=== PATIENT | male | born 1955 | race Caucasian/White ===

== ENCOUNTER 2017-03-16 08:58 | Emergency (ER) | payer BC, SELFPAY ==
[2017-03-16 09:20] VITALS: BP 153/91
[2017-03-16] MEDS ORDERED: Bacitracin Oint 1 GM U/D Packet TOP ONE (09:29)
--- NOTE | 2017-03-16 09:36 | EDM.PDOC ---
ED HPI GENERAL MEDICAL PROBLEM - General Chief Complaint: Wound Recheck Stated Complaint: MEDICAL VIA [facility] Time Seen by Provider: 03/16/17 09:32 Source of Information: Reports: Patient History Limitations: Reports: No Limitations - History of Present Illness INITIAL COMMENTS - FREE TEXT/NARRATIVE: pt arrived with a history of picking off a scab and having alot of bleeding all over his bathroom and what not. He was quite covered with blood on arrival. The area involved is on the inner spect of the rt ankle. Onset: Today Duration: Hour(s): Location: Reports: Lower Extremity, Right Associated Symptoms: Reports: No Other Symptoms - Related Data Allergies Allergy/AdvReac Type Severity Reaction Status Date / Time latex Allergy Hives Verified 01/18/16 08:49 Penicillins Allergy Hives Verified 01/18/16 08:49 Home Meds: Home Meds Glimepiride [Glimepiride] 1 tab PO DAILY 06/17/13 [History] Insulin Glarg,Human.Rec.Analog [Lantus Solostar] 55 units SQ QAM 06/17/13 [ History] metFORMIN [metFORMIN XR] 1,000 mg PO BIDM 06/17/13 [History] Ascorbic Acid [C-1000 with Soco Hips] 1 tab PO DAILY 01/18/16 [History] Aspirin 1 tab PO DAILY 01/18/16 [History] Calcium Carbonate/Vitamin D3 [Calcium 500-Vit D3 200 Tablet] 1 tab PO DAILY [History] Cholecalciferol (Vitamin D3) [Vitamin D3] 1 tab PO DAILY 01/18/16 [History] Chromium Amino Acid Chelate [Chromium] 200 mcg PO DAILY 01/18/16 [History] Insulin Aspart [NovoLOG] 20 - 25 unit SUBCUT ASDIRECTED 01/18/16 [History] Multivitamin/Iron/Folic Acid [Centrum Complete Multivit] 1 tab PO DAILY [History] Selenium 1 tab PO DAILY 01/18/16 [History] Ubidecarenone [Coenzyme Q10] 1 cap PO BID 01/18/16 [History] atorvaSTATin [Lipitor] 1 tab PO DAILY 01/18/16 [History] Past Medical History HEENT History: Reports: Impaired Vision Cardiovascular History: Reports: High Cholesterol, Hypertension Endocrine/Metabolic History: Reports: Diabetes, Type II Dermatologic History: Reports: Decubitus Ulcer Social & Family History - Tobacco Use Smoking Status *Q: Never Smoker - Recreational Drug Use Recreational Drug Use: No ED ROS GENERAL - Review of Systems Review Of Systems: See Below Constitutional: Reports: No Symptoms HEENT: Reports: No Symptoms Respiratory: Reports: No Symptoms Cardiovascular: Reports: No Symptoms Endocrine: Reports: No Symptoms GI/Abdominal: Reports: No Symptoms : Reports: No Symptoms Musculoskeletal: Reports: Other (pt removed a scab and he has had alot of bleeding since that time. The ave involved is on the inner aspect of the ankle. ) ED EXAM, GENERAL - Physical Exam Exam: See Below Free Text/Narrative:: pt arrived with a area on the inner aspect of the rt ankle which was bleeding profusely. He evidently had blood all over his house. He is a diabetic and has varicosities and he has had leg ulcrs. Exam Limited By: No Limitations General Appearance: Alert, Anxious, Mild Distress Ears: Normal TMs Nose: Normal Inspection Throat/Mouth: Normal Inspection Neck: Normal Inspection Respiratory/Chest: No Respiratory Distress Cardiovascular: Regular Rate, Rhythm GI/Abdominal: Soft, Non-Tender (Male) Exam: Deferred Rectal (Males) Exam: Deferred Back Exam: Normal Inspection Extremities: Normal Inspection Neurological: Alert, Oriented, Normal Cognition, Other (pt is slightly impaired with his abilities) Course - Vital Signs Last Recorded V/S: Last Vital Signs Temp 36.0 C 03/16/17 09:19 Pulse 90 03/16/17 09:19 Resp 14 03/16/17 09:19 BP 153/91 H 03/16/17 09:19 Pulse Ox 96 03/16/17 09:19 - Orders/Labs/Meds Labs: Laboratory Tests 03/16/17 03/16/17 Range/Units 09:28 09:30 WBC 6.7 (4.5-11.0) K/uL RBC 4.83 (4.30-5.90) M/uL Hgb 14.1 D (12.0-15.0) g/dL Hct 42.4 (40.0-54.0) % MCV 88 (80-98) fL MCH 29 (27-31) pg MCHC 33 (32-36) % Plt Count 229 (150-400) K/uL Neut % (Auto) 67 H (36-66) % Lymph % (Auto) 19 L (24-44) % [place] % (Auto) 9 H (2-6) % Eos % (Auto) 4 (2-4) % Baso % (Auto) 0 (0-1) % Sodium 144 (140-148) mmol/L Potassium 3.9 (3.6-5.2) mmol/L Chloride 108 (100-108) mmol/L Carbon Dioxide 25 (21-32) mmol/L Anion Gap 11.5 (5.0-14.0) mmol/L BUN 20 H (7-18) mg/dL Creatinine 0.9 (0.8-1.3) mg/dL Est Cr Clr Drug Dosing 86.19 mL/min Estimated GFR (MDRD) > 60 (>60) Glucose 162 H (74-106) mg/dL Calcium 8.6 (8.5-10.1) mg/dL Meds: Medications Discontinued Medications Generic Name Dose Route Start Last Admin Trade Name Freq PRN Reason Stop Dose Admin Bacitracin 1 dose 03/16/17 09:29 03/16/17 09:33 Bacitracin Oint 1 Gm TOP 03/16/17 09:30 1 dose ONETIME ONE Administration Insulin Detemir 45 unit 03/16/17 10:00 03/16/17 10:03 Levemir SUBCUT 03/16/17 10:01 45 unit ONETIME ONE Administration Lidocaine HCl 5 ml 03/16/17 09:28 03/16/17 09:33 Xylocaine-Mpf 1% INJECT 03/16/17 09:29 5 ml ONETIME ONE Administration Metformin HCl 1,000 mg 03/16/17 09:44 03/16/17 10:06 Glucophage PO 03/16/17 09:45 1,000 mg ONETIME ONE Administration - Re-Assessments/Exams Free Text/Narrative Re-Assessment/Exam: 03/16/17 10:27 pt had a obvious arterial bleeder at the ankle. He was still pumping alot so the area was cleansed well and a stitch was placed. The bleeding did stop readily. Dr castrejon saw the pt and he suggested that we place a coban dressing and since he is gone next week that the pt would follow up with Dr Licona. A appt was set up. Free Text/Narrative Re-Assessment/Exam: 03/16/17 10:33 Pt had lab work that looked good. He was given his metformin and lantus insulin. Departure - Departure Time of Disposition: 10:30 Disposition: Home, Self-Care 01 Condition: Fair Clinical Impression: Varicose leg ulcer - Discharge Information Referrals: PCP,None [Primary Care Provider] - Forms: ED Department Discharge Care Plan Goals: coban dressing was placed on the pt. He will have a stitch to be removed in 10days, appt with Dr Licona at 3 pm on the .
[2017-03-16] MEDS ORDERED: metFORMIN 500 MG Tab PO ONE (09:44)
== END 2017-03-16 10:59 | disposition home or self-care (01) ==
LOC: JP.ED 08:58
DX: I83.013 Varicose veins of right lower extremity with ulcer of ankle (principal); E11.622 Type 2 diabetes mellitus with other skin ulcer; L97.319 Non-pressure chronic ulcer of right ankle with unspecified severity; E78.00 Pure hypercholesterolemia, unspecified; I10 Essential (primary) hypertension; Z91.040 Latex allergy status; Z88.0 Allergy status to penicillin; Z79.4 Long term (current) use of insulin; Z79.82 Long term (current) use of aspirin; Z79.899 Other long term (current) drug therapy
CPT/HCPCS: 36415; 80048; 85025; 99284; A9270

== ENCOUNTER 2017-03-23 06:20 | Day surgery (SDC) | payer BC, SELFPAY ==
[2017-03-23] MEDS ORDERED: Lactated Ringers 1,000 ML IV SCH (07:00)
[2017-03-23] MEDS ORDERED: Propofol 200 MG/20 ML SDV ONE (07:43)
[2017-03-23] MEDS ORDERED: fentaNYL 100 MCG/2 ML SDV ONE (07:43)
[2017-03-23] MEDS ORDERED: Midazolam 1 MG/ML 2 ML SDV ONE (07:44)
[2017-03-23 08:54] VITALS: BP 139/85
--- NOTE | 2017-03-23 13:36 | OR ---
DATE OF PROCEDURE: 03/23/2017 PREOPERATIVE DIAGNOSES: 1. Colon cancer screening. 2. Positive FIT test. POSTOPERATIVE DIAGNOSES: 1. Small rectal polyp. 2. Colon cancer screening. 3. Positive FIT test. PROCEDURE PERFORMED: Colonoscopy to the cecum with biopsy resection of small rectal polyp. SURGEON: Juma Centeno MD. ANESTHESIA: IV anesthesia with monitored anesthesia care. INDICATION: This 61-year-old white male has never had a colonoscopic exam. He had a positive FIT test, so he agreed to undergo a colonoscopy. I counseled him for the colonoscopy with possible biopsy and/or polypectomy including risks and alternatives, and he gave his informed consent to proceed. DESCRIPTION OF PROCEDURE: The patient was placed in the left lateral decubitus position. IV anesthesia was administered by the Anesthesia Service. Time-out was held. A rectal exam was performed, which was unremarkable. The flexible video Olympus colonoscope was introduced through his anus, up his rectum, and out his colon all the way to the cecum. Once the cecum was reached, the scope was slowly withdrawn, examining the mucosa throughout. No mucosal abnormalities were noted until we reached the rectum. Here, we initially retroflexed the scope, with the distal rectum appearing unremarkable. The scope was straightened and this revealed a small rectal polyp. This was removed with several bites of biopsy forceps. The scope was then removed. He tolerated the procedure well. Juma Centeno MD /[id number]
== END 2017-03-23 09:25 | disposition home or self-care (01) ==
LOC: JP.SDS 06:20
PROVIDERS: ATTEND Surgery
DX: Z12.11 Encounter for screening for malignant neoplasm of colon (principal); K62.1 Rectal polyp; I10 Essential (primary) hypertension; E78.00 Pure hypercholesterolemia, unspecified; E11.21 Type 2 diabetes mellitus with diabetic nephropathy; Z88.0 Allergy status to penicillin; Z91.040 Latex allergy status
CPT/HCPCS: 45380; 88305; J2250; J2704; J3010; J7120

== ENCOUNTER 2017-05-10 20:09 | Emergency (ER) | payer BC, SELFPAY ==
[2017-05-10 20:34] VITALS: BP 173/112
--- NOTE | 2017-05-10 21:54 | EDM.PDOC ---
ED HPI GENERAL MEDICAL PROBLEM - General Chief Complaint: Skin Complaint Stated Complaint: BLISTERS AND PAIN ON FOOT Time Seen by Provider: 05/10/17 20:38 Source of Information: Reports: Patient History Limitations: Reports: No Limitations - History of Present Illness INITIAL COMMENTS - FREE TEXT/NARRATIVE: bilateral leg infections are getting worse. today the right lower leg is more swollen and red. 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 at the end of the day, legs are swollen. today more red and swollen. dnies any fever or chills Is being seen by Dr. Gaines for this wound, last visit on 03/27/2017, was suppose to return in one week, but forgot about it. Onset: Gradual Duration: Week(s): Location: Reports: Lower Extremity, Left, Lower Extremity, Right Quality: Reports: Ache, Dull, Pressure Severity: Moderate Improves with: Reports: Rest Worsens with: Reports: Movement Associated Symptoms: Reports: No Other Symptoms - Related Data Allergies Allergy/AdvReac Type Severity Reaction Status Date / Time latex Allergy Hives Verified 05/10/17 20:37 Penicillins Allergy Hives Verified 05/10/17 20:37 Home Meds: Home Meds Glimepiride [Glimepiride] 1 tab PO DAILY 06/17/13 [History] Insulin Glarg,Human.Rec.Analog [Lantus Solostar] 45 units SQ QAM 06/17/13 [ History] metFORMIN [metFORMIN XR] 1,000 mg PO BIDM 06/17/13 [History] Ascorbic Acid [C-1000 with Soco Hips] 1 tab PO DAILY 01/18/16 [History] Aspirin 1 tab PO DAILY 01/18/16 [History] Calcium Carbonate/Vitamin D3 [Calcium 500-Vit D3 200 Tablet] 1 tab PO DAILY [History] Cholecalciferol (Vitamin D3) [Vitamin D3] 1 tab PO DAILY 01/18/16 [History] Chromium Amino Acid Chelate [Chromium] 200 mcg PO DAILY 01/18/16 [History] Insulin Aspart [NovoLOG] 8 - 28 unit SUBCUT ASDIRECTED 01/18/16 [History] Multivitamin/Iron/Folic Acid [Centrum Complete Multivit] 1 tab PO DAILY [History] Selenium 1 tab PO DAILY 01/18/16 [History] Ubidecarenone [Coenzyme Q10] 1 cap PO BID 01/18/16 [History] atorvaSTATin [Lipitor] 1 tab PO DAILY 01/18/16 [History] Past Medical History HEENT History: Reports: Impaired Vision Cardiovascular History: Reports: High Cholesterol, Hypertension Respiratory History: Reports: None Genitourinary History: Reports: Diabetic Nephropathy Musculoskeletal History: Reports: Back Pain, Chronic Endocrine/Metabolic History: Reports: Diabetes, Type II Dermatologic History: Reports: Decubitus Ulcer - Past Surgical History Head Surgeries/Procedures: Reports: None HEENT Surgical History: Reports: Cataract Surgery, Tonsillectomy GI Surgical History: Reports: Colonoscopy Male Surgical History: Reports: None Social & Family History - Family History Family Medical History: Noncontributory - Tobacco Use Smoking Status *Q: Never Smoker - Caffeine Use Caffeine Use: Reports: None - Recreational Drug Use Recreational Drug Use: No ED ROS GENERAL - Review of Systems Review Of Systems: See Below Constitutional: Reports: No Symptoms HEENT: Reports: No Symptoms Respiratory: Reports: No Symptoms Cardiovascular: Reports: No Symptoms Endocrine: Reports: No Symptoms GI/Abdominal: Reports: No Symptoms : Reports: No Symptoms Musculoskeletal: Reports: Leg Pain (right calf), Muscle Pain Skin: Reports: Rash, Erythema, Lesions (blisters noted to the medial and lateral foot.) Neurological: Reports: No Symptoms Psychiatric: Reports: No Symptoms, Other (developmental disabilities) Hematologic/Lymphatic: Reports: No Symptoms Immunologic: Reports: No Symptoms ED EXAM, SKIN/RASH Exam: See Below Exam Limited By: No Limitations General Appearance: Alert, WD/WN, No Apparent Distress Ears: Normal External Exam, Normal Canal, Hearing Grossly Normal, Normal TMs Nose: Normal Inspection, Normal Mucosa, No Blood Throat/Mouth: Normal Inspection Head: Atraumatic, Normocephalic Neck: Normal Inspection, Supple, Non-Tender, Full Range of Motion Respiratory/Chest: No Respiratory Distress, Lungs Clear, Normal Breath Sounds, No Accessory Muscle Use, Chest Non-Tender Cardiovascular: Normal Peripheral Pulses, Regular Rate, Rhythm, No Edema, No Gallop, No JVD, No Murmur, No Rub GI/Abdominal: Normal Bowel Sounds, Soft, Non-Tender, No Organomegaly, No Distention, No Abnormal Bruit, No Mass (Male) Exam: Deferred Rectal (Males) Exam: Deferred Back Exam: Normal Inspection, Full Range of Motion Extremities: Normal Inspection, Normal Range of Motion, Non-Tender, No Pedal Edema, Normal Capillary Refill Neurological: Alert, Oriented, Normal Cognition, Normal Gait Psychiatric: Normal Affect, Normal Mood Skin: Warm, Dry, Intact, Rash (right leg with acute edema, skin is tense and dark reddish color. blisters noted sides of foot) Location, Skin: Lower Extremity, Right, Lower Extremity, Left, Soles Characteristics: Bullous, Erythematous (lower legs not including foot or toes) Associated features: Warmth, Tenderness, Swelling, Inflammation Lymphatic: No Adenopathy Course - Vital Signs Last Recorded V/S: Last Vital Signs Temp 36.6 C 05/10/17 20:40 Pulse 108 H 05/10/17 20:40 Resp 20 05/10/17 20:40 BP 173/112 H 05/10/17 20:40 Pulse Ox 96 05/10/17 20:40 - Orders/Labs/Meds Labs: Laboratory Tests 05/10/17 05/10/17 Range/Units 21:05 21:05 WBC 7.8 (4.5-11.0) K/uL RBC 4.54 (4.30-5.90) M/uL Hgb 13.3 (12.0-15.0) g/dL Hct 40.3 (40.0-54.0) % MCV 89 (80-98) fL MCH 29 (27-31) pg MCHC 33 (32-36) % Plt Count 242 (150-400) K/uL Neut % (Auto) 67 H (36-66) % Lymph % (Auto) 16 L (24-44) % [place] % (Auto) 8 H (2-6) % Eos % (Auto) 9 H (2-4) % Baso % (Auto) 0 (0-1) % Sodium 144 (140-148) mmol/L Potassium 3.8 (3.6-5.2) mmol/L Chloride 107 (100-108) mmol/L Carbon Dioxide 28 (21-32) mmol/L Anion Gap 8.7 (5.0-14.0) mmol/L BUN 18 (7-18) mg/dL Creatinine 0.9 (0.8-1.3) mg/dL Est Cr Clr Drug Dosing 86.19 mL/min Estimated GFR (MDRD) > 60 (>60) Glucose 92 (74-106) mg/dL Calcium 8.9 (8.5-10.1) mg/dL Total Bilirubin 0.3 (0.2-1.0) mg/dL AST 18 (15-37) U/L ALT 42 (12-78) U/L Alkaline Phosphatase 95 (46-116) U/L Total Protein 6.9 (6.4-8.2) g/dL Albumin 3.6 (3.4-5.0) g/dL Globulin 3.3 (2.3-3.5) g/dL Albumin/Globulin Ratio 1.1 L (1.2-2.2) - Re-Assessments/Exams Free Text/Narrative Re-Assessment/Exam: 05/10/17 21:[address] Gaines, who advised; will see next week in clinic, start antibiotics tonight. advise to rtc or er sooner is worsen. discussed with Mr. Daniels, agrees with plan of care. c Departure - Departure Time of Disposition: 22:34 Disposition: Home, Self-Care 01 Condition: Good Clinical Impression: Cellulitis Qualifiers: Site of cellulitis: extremity Site of cellulitis of extremity: lower extremity Laterality: unspecified laterality Qualified Code(s): L03.119 - Cellulitis of unspecified part of limb - Discharge Information Instructions: Cellulitis, Adult, [id number] Referrals: [facility] [Primary Care Provider] - Forms: ED Department Discharge Care Plan Goals: cellulitis -start tonight Keflex one capsule in morning, noon and night for 10 days -Tylenol #3; take one tablet every 4 to 6 hours as needed for pain -do daily skin care with dressing changes -try to stay off feet as much as possible for the next 5 days -avoid prolonged standing or walking. make an appointment to see Dr. Gaines next week for wound care return to ER, Urgent Care or Clinic for any increased pain, fever, chills, increased swelling or not improving. - Problem List & Annotations (1) Cellulitis SNOMED Code(s): 716224377 Code(s): L03.90 - CELLULITIS, UNSPECIFIED Status: Acute Priority: Medium Qualifiers: Site of cellulitis: extremity Site of cellulitis of extremity: lower extremity Laterality: unspecified laterality Qualified Code(s): L03.119 - Cellulitis of unspecified part of limb - Problem List Review Problem List Initiated/Reviewed/Updated: Yes - Assessment/Plan Plan: cellulitis -start tonight Keflex one capsule in morning, noon and night for 10 days -Tylenol #3; take one tablet every 4 to 6 hours as needed for pain -do daily skin care with dressing changes -try to stay off feet as much as possible for the next 5 days -avoid prolonged standing or walking. make an appointment to see Dr. Gaines next week for wound care return to ER, Urgent Care or Clinic for any increased pain, fever, chills, increased swelling or not improving.
== END 2017-05-10 22:34 | disposition home or self-care (01) ==
LOC: JP.ED 20:09
DX: S90.821A Blister (nonthermal), right foot, initial encounter (principal); L03.115 Cellulitis of right lower limb; I10 Essential (primary) hypertension; E78.00 Pure hypercholesterolemia, unspecified; E11.21 Type 2 diabetes mellitus with diabetic nephropathy; Z79.899 Other long term (current) drug therapy; Z79.4 Long term (current) use of insulin; Z91.040 Latex allergy status; Z88.0 Allergy status to penicillin; Z79.82 Long term (current) use of aspirin
CPT/HCPCS: 36415; 80053; 85025; 99284

== ENCOUNTER 2017-09-19 12:45 | Emergency (ER) | payer BC, OTHER, SELFPAY ==
[2017-09-19 13:49] VITALS: BP 169/97
[2017-09-19] MEDS ORDERED: Docusate Sodium 100 MG Cap STA (14:10)
--- NOTE | 2017-09-19 14:14 | EDM.PDOC ---
ED HPI GENERAL MEDICAL PROBLEM - General Chief Complaint: ENT Problem Stated Complaint: CANNOT HEAR BOTH EARS Time Seen by Provider: 09/19/17 14:00 Source of Information: Reports: Patient, RN History Limitations: Reports: No Limitations - History of Present Illness INITIAL COMMENTS - FREE TEXT/NARRATIVE: 62 yo male developed loss of hearing about midday today. He has no pain. He noticed his hearing was decreased earlier and tried to flush his own ears without results. Came right to the ER without stopping at the clinic. Can hear himself talk only. Onset: Today Onset Date: 09/19/17 Onset Time: 12:00 Duration: Hour(s): Location: Reports: Head (both ears) Quality: Reports: Other (no pain) Severity: Mild Improves with: Reports: None Worsens with: Reports: None Context: Reports: Other (? 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 ) - Related Data Allergies Allergy/AdvReac Type Severity Reaction Status Date / Time latex Allergy Hives Verified 09/19/17 14:06 Penicillins Allergy Hives Verified 09/19/17 14:06 Home Meds: Home Meds Glimepiride 1 tab PO DAILY 06/17/13 [History] Insulin Glarg,Human.Rec.Analog [Lantus Solostar] 45 units SQ QAM 06/17/13 [ History] metFORMIN [metFORMIN XR] 1,000 mg PO BIDM 06/17/13 [History] Ascorbic Acid [C-1000 with Soco Hips] 1 tab PO DAILY 01/18/16 [History] Aspirin 1 tab PO DAILY 01/18/16 [History] Calcium Carbonate/Vitamin D3 [Calcium 500-Vit D3 200 Tablet] 1 tab PO DAILY [History] Cholecalciferol (Vitamin D3) [Vitamin D3] 1 tab PO DAILY 01/18/16 [History] Chromium Amino Acid Chelate [Chromium] 200 mcg PO DAILY 01/18/16 [History] Insulin Aspart [NovoLOG] 8 - 28 unit SUBCUT ASDIRECTED 01/18/16 [History] Multivitamin/Iron/Folic Acid [Centrum Complete Multivit] 1 tab PO DAILY [History] Selenium 1 tab PO DAILY 01/18/16 [History] Ubidecarenone [Coenzyme Q10] 1 cap PO BID 01/18/16 [History] atorvaSTATin [Lipitor] 1 tab PO DAILY 01/18/16 [History] Past Medical History HEENT History: Reports: Impaired Vision Cardiovascular History: Reports: High Cholesterol, Hypertension Respiratory History: Reports: None Genitourinary History: Reports: Diabetic Nephropathy Musculoskeletal History: Reports: Back Pain, Chronic Endocrine/Metabolic History: Reports: Diabetes, Type II Dermatologic History: Reports: Decubitus Ulcer - Past Surgical History HEENT Surgical History: Reports: Cataract Surgery, Tonsillectomy GI Surgical History: Reports: Colonoscopy Male Surgical History: Reports: None Social & Family History - Family History Family Medical History: Noncontributory - Tobacco Use Smoking Status *Q: Unknown Ever Smoked - Caffeine Use Caffeine Use: Reports: None - Recreational Drug Use Recreational Drug Use: No ED ROS ENT - Review of Systems Review Of Systems: See Below Constitutional: Reports: No Symptoms HEENT: Reports: Hearing Loss. Denies: Ear Discharge, Ear Pain Respiratory: Reports: No Symptoms Cardiovascular: Reports: No Symptoms Skin: Reports: No Symptoms Neurological: Reports: No Symptoms ED EXAM, ENT - Physical Exam Exam: See Below Exam Limited By: No Limitations General Appearance: Alert, WD/WN, No Apparent Distress Eye Exam: Bilateral Eye: Normal Inspection Ears: Normal External Exam, Normal Canal, Hearing Loss, TM Obscured by Cerumen, Cerumen Impaction. No: Normal TMs, Auricular Erythema, Auricular Ecchymosis Nose: Normal Inspection, Normal Mucousa, No Blood Mouth/Throat: Normal Inspection, Normal Gums, Normal Lips Head: Atraumatic, Normocephalic Neck: Normal Inspection, Supple, Non-Tender Respiratory/Chest: No Respiratory Distress, Lungs Clear, Normal Breath Sounds, No Accessory Muscle Use Cardiovascular: Regular Rate, Rhythm, No Edema Course - Vital Signs Text/Narrative:: Unable to remove wax today with irrigation, too hard. Last Recorded V/S: Last Vital Signs Temp 35.6 C 09/19/17 14:05 Pulse 73 09/19/17 14:05 Resp 14 09/19/17 14:05 BP 169/97 H 09/19/17 14:05 Pulse Ox 96 09/19/17 14:05 - Orders/Labs/Meds Meds: Medications Discontinued Medications Generic Name Dose Route Start Last Admin Trade Name Freq PRN Reason Stop Dose Admin Docusate Sodium 200 mg 09/19/17 14:10 09/19/17 14:48 Colace .XX 09/19/17 14:11 200 mg NOW STA Administration Departure - Departure Time of Disposition: 15:44 Disposition: Home, Self-Care 01 Condition: Good Clinical Impression: Bilateral impacted cerumen - Discharge Information Referrals: PCP,None [Primary Care Provider] - Forms: ED Department Discharge
== END 2017-09-19 15:59 | disposition home or self-care (01) ==
LOC: JP.ED 12:45
DX: H61.23 Impacted cerumen, bilateral (principal); E11.21 Type 2 diabetes mellitus with diabetic nephropathy; I10 Essential (primary) hypertension; E78.00 Pure hypercholesterolemia, unspecified; Z79.4 Long term (current) use of insulin; Z79.899 Other long term (current) drug therapy; Z91.040 Latex allergy status; Z88.0 Allergy status to penicillin; Z79.82 Long term (current) use of aspirin
CPT/HCPCS: 99283; A9270

== ENCOUNTER 2018-02-22 10:22 | Emergency (ER) | payer BC ==
[2018-02-22 10:45] VITALS: BP 152/87
[2018-02-22] MEDS ORDERED: Ketorolac 30 MG/ML SDV IM ONE (11:39)
[2018-02-22] MEDS ORDERED: Cyclobenzaprine 10 MG Tab PO ONE (11:39)
--- NOTE | 2018-02-22 11:41 | EDM.PDOC ---
ED HPI GENERAL MEDICAL PROBLEM - General Chief Complaint: Back Pain or Injury Stated Complaint: LOWER BACK PAIN Time Seen by Provider: 02/22/18 11:36 Source of Information: Reports: Patient History Limitations: Reports: No Limitations, Other (Pt with developmental delay but is a good historian) - History of Present Illness INITIAL COMMENTS - FREE TEXT/NARRATIVE: Pt was sitting in the chair yesterday when developed low back pain. No known injury. Today is having spasm and difficulty with ADL's. Did take 2 Advil at home. Denies urinary symptoms or numbness or tingling. 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 Left Lower Back Pain Score (Numeric/FACES): 8 - Related Data Allergies Allergy/AdvReac Type Severity Reaction Status Date / Time latex Allergy Hives Verified 02/22/18 10:38 Penicillins Allergy Hives Verified 02/22/18 10:38 Home Meds: Home Meds Glimepiride 1 tab PO DAILY 06/17/13 [History] Insulin Glarg,Human.Rec.Analog [Lantus Solostar] 40 units SQ QAM 06/17/13 [ History] metFORMIN [metFORMIN XR] 1,000 mg PO BIDM 06/17/13 [History] Ascorbic Acid [C-1000 with Soco Hips] 1 tab PO DAILY 01/18/16 [History] Aspirin 1 tab PO DAILY 01/18/16 [History] Calcium Carbonate/Vitamin D3 [Calcium 500-Vit D3 200 Tablet] 1 tab PO DAILY [History] Cholecalciferol (Vitamin D3) [Vitamin D3] 1 tab PO DAILY 01/18/16 [History] Chromium Amino Acid Chelate [Chromium] 200 mcg PO DAILY 01/18/16 [History] Insulin Aspart [NovoLOG] 8 - 28 unit SUBCUT ASDIRECTED 01/18/16 [History] Multivitamin/Iron/Folic Acid [Centrum Complete Multivit] 1 tab PO DAILY [History] Selenium 1 tab PO DAILY 01/18/16 [History] Ubidecarenone [Coenzyme Q10] 1 cap PO DAILY 01/18/16 [History] atorvaSTATin [Lipitor] 1 tab PO DAILY 01/18/16 [History] Cetirizine HCl [Zyrtec] 10 mg PO DAILY 02/22/18 [History] Past Medical History HEENT History: Reports: Impaired Vision Cardiovascular History: Reports: High Cholesterol, Hypertension Respiratory History: Reports: None Genitourinary History: Reports: Diabetic Nephropathy Musculoskeletal History: Reports: Back Pain, Chronic Endocrine/Metabolic History: Reports: Diabetes, Type II Dermatologic History: Reports: Decubitus Ulcer - Past Surgical History HEENT Surgical History: Reports: Cataract Surgery, Tonsillectomy GI Surgical History: Reports: Colonoscopy Social & Family History - Family History Family Medical History: Noncontributory - Tobacco Use Smoking Status *Q: Never Smoker Second Hand Smoke Exposure: No - Caffeine Use Caffeine Use: Reports: Coffee, Tea - Recreational Drug Use Recreational Drug Use: No ED ROS GENERAL - Review of Systems Review Of Systems: See Below Constitutional: Reports: No Symptoms HEENT: Reports: No Symptoms Respiratory: Reports: No Symptoms Cardiovascular: Reports: No Symptoms Endocrine: Reports: No Symptoms, Other (tested blood sugar this morning. Was 174.) GI/Abdominal: Reports: No Symptoms : Reports: No Symptoms Musculoskeletal: Reports: Back Pain (low back, non radiating) Skin: Reports: No Symptoms Neurological: Reports: No Symptoms ED EXAM,LOWER BACK PAIN/INJURY - Physical Exam Exam: See Below Exam Limited By: No Limitations General Appearance: Alert, WD/WN, Mild Distress, Other (Pt developmentally delayed but good historian.) Head: Atraumatic, Normocephalic Neck: Normal Inspection, Supple, Non-Tender, Full Range of Motion Respiratory/Chest: No Respiratory Distress, Lungs Clear, Normal Breath Sounds, No Accessory Muscle Use, Chest Non-Tender Cardiovascular: Normal Peripheral Pulses, Regular Rate, Rhythm, No Edema, No Gallop, No JVD, No Murmur, No Rub Back Exam: Normal Inspection, Decreased Range of Motion (limited flexion), Muscle Spasm (with position change to low mid back) Extremities: Normal Inspection, Normal Range of Motion, Non-Tender, No Pedal Edema, Normal Capillary Refill Neurological: Alert Course - Vital Signs Last Recorded V/S: Last Vital Signs Temp 97.7 F 02/22/18 10:49 Pulse 94 02/22/18 10:49 Resp 16 02/22/18 10:49 BP 152/87 H 02/22/18 10:49 Pulse Ox 98 02/22/18 10:49 - Orders/Labs/Meds Orders: Active Orders 24 hr Category Date Time Status Lumbar Spine 2 or 3V [CR] Stat Exams 02/22/18 11:38 Taken UA W/MICROSCOPIC [URIN] Routine Lab 02/22/18 12:18 Ordered Labs: Laboratory Tests 02/22/18 Range/Units 12:18 Urine Color Yellow Urine Appearance Clear Urine pH 5.0 (4.5-8.0) Ur Specific [place] 1.025 (1.008-1.030) Urine Protein Negative (NEGATIVE) mg/dL Urine Glucose (UA) Normal (NEGATIVE) mg/dL Urine Ketones Negative (NEGATIVE) mg/dL Urine Occult Blood Negative (NEGATIVE) Urine Nitrite Negative (NEGAITVE) Urine Bilirubin Negative (NEGATIVE) Urine Urobilinogen Normal (NORMAL) mg/dL Ur Leukocyte Esterase Negative (NEGATIVE) Urine RBC 0-5 (0-5) Urine WBC 0-5 (0-5) Ur Epithelial Cells Rare Amorphous Sediment Not seen Urine Bacteria Not seen Urine Mucus Not seen Meds: Medications Discontinued Medications Generic Name Dose Route Start Last Admin Trade Name Freq PRN Reason Stop Dose Admin Cyclobenzaprine HCl 10 mg 02/22/18 11:39 02/22/18 11:46 Flexeril PO 02/22/18 11:40 10 mg ONETIME ONE Administration Ketorolac Tromethamine 30 mg 02/22/18 11:39 02/22/18 11:46 Toradol IM 02/22/18 11:40 30 mg ONETIME ONE Administration Departure - Departure Time of Disposition: 12:33 Disposition: Home, Self-Care 01 Condition: Fair Clinical Impression: Low back pain Qualifiers: Chronicity: acute Back pain laterality: bilateral Sciatica presence: without sciatica Qualified Code(s): M54.5 - Low back pain - Discharge Information *PRESCRIPTION DRUG MONITORING PROGRAM REVIEWED*: Not Applicable *COPY OF PRESCRIPTION DRUG MONITORING REPORT IN PATIENT IMELDA: Not Applicable Instructions: Back Exercises, Back Pain, Adult Referrals: PCP,None [Primary Care Provider] - Forms: ED Department Discharge Additional Instructions: UA negative. Back xrays should mild degenerative disc disease at L5. Pt given Cyclobenzaprine 10mg po and Toradol 30mg IM. Will send home with RX for Cyclobenzaprine 10mg every 8 hours as needed for spasm and Naproxen 500mg po twice daily for inflammation. Encourage ice to back. Consider physical therapy consult next week if pain persisting. Avoid twisting, heavy lifting for the next several day. Followup with primary care next week if pain worsening. - Problem List & Annotations (1) Low back pain SNOMED Code(s): 514575730 Code(s): M54.5 - LOW BACK PAIN Status: Acute Priority: Low Current Visit: Yes Qualifiers: Chronicity: acute Back pain laterality: bilateral Sciatica presence: without sciatica Qualified Code(s): M54.5 - Low back pain - My Orders Last 24 Hours: My Active Orders 02/22/18 11:38 Lumbar Spine 2 or 3V [CR] Stat 02/22/18 12:18 UA W/MICROSCOPIC [URIN] Routine - Assessment/Plan Last 24 Hours: My Active Orders 02/22/18 11:38 Lumbar Spine 2 or 3V [CR] Stat 02/22/18 12:18 UA W/MICROSCOPIC [URIN] Routine
--- NOTE | 2018-02-22 12:39 | CR ---
Lumbar Spine 2 or 3V CLINICAL HISTORY: Low back pain and spasm FINDINGS: The vertebral body heights are maintained. There is diffuse disc space narrowing. There is mild diffuse spondylosis more notable in the mid lumbar spine. There is minimal anterolisthesis of L5 on S1. There is moderate osteoarthropathy in the lower lumbar facets IMPRESSION: Diffuse degenerative disc changes with spondylosis Osteoarthropathy in the lower lumbar facets
== END 2018-02-22 12:49 | disposition home or self-care (01) ==
LOC: JP.ED 10:22
DX: M54.5 Low back pain (principal); Z88.0 Allergy status to penicillin; Z91.040 Latex allergy status; Z79.4 Long term (current) use of insulin; Z79.82 Long term (current) use of aspirin; Z79.899 Other long term (current) drug therapy
CPT/HCPCS: 72100; 81001; 96372; 99284; A9270; J1885

== ENCOUNTER 2019-02-10 08:51 | Emergency (ER) | payer BC, SELFPAY ==
[2019-02-10 09:17] VITALS: BP 152/83; PULSE 107
--- NOTE | 2019-02-10 09:44 | EDM.PDOC ---
ED HPI GENERAL MEDICAL PROBLEM - General Chief Complaint: General Stated Complaint: bleeding on private parts Time Seen by Provider: 02/10/19 09:30 Source of Information: Reports: Patient History Limitations: Reports: No Limitations - History of Present Illness INITIAL COMMENTS - FREE TEXT/NARRATIVE: 63-year-old male with a rash in his groin bilaterally, worse on the right side, and this morning was bleeding so he wanted checked out. It is not bleeding currently. It's not painful just itchy and irritating. - Related Data Allergies Allergy/AdvReac Type Severity Reaction Status Date / Time latex Allergy Hives Verified 02/22/18 10:38 Penicillins Allergy Hives Verified 02/22/18 10:38 Home Meds: Home Meds Glimepiride 1 tab PO DAILY 06/17/13 [History] Insulin Glarg,Human.Rec.Analog [Lantus Solostar] 48 units SQ QAM 06/17/13 [ History] metFORMIN [metFORMIN XR] 1,000 mg PO BIDM 06/17/13 [History] Ascorbic Acid [C-1000 with Soco Hips] 1 tab PO DAILY 01/18/16 [History] Aspirin 1 tab PO DAILY 01/18/16 [History] Calcium Carbonate/Vitamin D3 [Calcium 500-Vit D3 200 Tablet] 1 tab PO DAILY [History] Cholecalciferol (Vitamin D3) [Vitamin D3] 1 tab PO DAILY 01/18/16 [History] Chromium Amino Acid Chelate [Chromium] 200 mcg PO DAILY 01/18/16 [History] Insulin Aspart [NovoLOG] 8 - 28 unit SUBCUT ASDIRECTED 01/18/16 [History] Multivitamin/Iron/Folic Acid [Centrum Complete Multivit] 1 tab PO DAILY [History] Selenium 1 tab PO DAILY 01/18/16 [History] Ubidecarenone [Coenzyme Q10] 1 cap PO DAILY 01/18/16 [History] atorvaSTATin [Lipitor] 1 tab PO DAILY 01/18/16 [History] Cetirizine HCl [Zyrtec] 10 mg PO DAILY 02/22/18 [History] Past Medical History HEENT History: Reports: Impaired Vision Cardiovascular History: Reports: High Cholesterol, Hypertension Respiratory History: Reports: None Genitourinary History: Reports: Diabetic Nephropathy Musculoskeletal History: Reports: Back Pain, Chronic Endocrine/Metabolic History: Reports: Diabetes, Type II Dermatologic History: Reports: Decubitus Ulcer - Past Surgical History HEENT Surgical History: Reports: Cataract Surgery, Tonsillectomy GI Surgical History: Reports: Colonoscopy Social & Family History - Family History Family Medical History: Noncontributory - Tobacco Use Smoking Status *Q: Never Smoker - Caffeine Use Caffeine Use: Reports: Coffee - Recreational Drug Use Recreational Drug Use: No ED ROS GENERAL - Review of Systems Review Of Systems: See Below Constitutional: Denies: Fever, Chills HEENT: Reports: No Symptoms Respiratory: Denies: Shortness of Breath Cardiovascular: Denies: Chest Pain GI/Abdominal: Denies: Abdominal Pain, Nausea, Vomiting Neurological: Denies: Headache ED EXAM, GENERAL - Physical Exam Exam: See Below Exam Limited By: No Limitations General Appearance: Alert, No Apparent Distress Respiratory/Chest: No Respiratory Distress Cardiovascular: Regular Rate, Rhythm Skin Exam: Other (Exam of the groin area shows an erythematous rash in the creases bilaterally, worse on the right. No source of bleeding found. No ulcerations or abrasion.) Course - Vital Signs Last Recorded V/S: Last Vital Signs Temp 95.8 F 02/10/19 09:26 Pulse 107 H 02/10/19 09:26 Resp 15 02/10/19 09:26 BP 152/83 H 02/10/19 09:26 Pulse Ox 95 02/10/19 09:26 - Re-Assessments/Exams Free Text/Narrative Re-Assessment/Exam: 02/10/19 09:43 Patient has yeast dermatitis of the groin that must have been irritated enough to bleed earlier today. He was prescribed Lotrimin cream to apply twice daily and can recheck at the clinic if not improving. Departure - Departure Time of Disposition: 10:00 Disposition: Home, Self-Care 01 Condition: Good Clinical Impression: Yeast dermatitis - Discharge Information Instructions: Skin Yeast Infection Referrals: Anson Seay MD [Primary Care Provider] - Forms: ED Department Discharge Care Plan Goals: Continue any regular medications, and apply cream to the rash area twice daily and try to keep this as dry and clean as possible. Recheck at the clinic in 5- 10 days if not improving satisfactorily.
== END 2019-02-10 10:00 | disposition home or self-care (01) ==
LOC: JP.ED 08:51
DX: L30.8 Other specified dermatitis (principal); B37.9 Candidiasis, unspecified; I10 Essential (primary) hypertension; E11.21 Type 2 diabetes mellitus with diabetic nephropathy; E78.00 Pure hypercholesterolemia, unspecified; Z91.040 Latex allergy status; Z88.0 Allergy status to penicillin; Z79.4 Long term (current) use of insulin; Z79.82 Long term (current) use of aspirin; Z79.899 Other long term (current) drug therapy
CPT/HCPCS: 99282

== ENCOUNTER 2020-04-06 11:59 | Emergency (ER) | payer BC ==
[2020-04-06 12:43] VITALS: BP 165/93; PULSE 116
--- NOTE | 2020-04-06 12:45 | EDM.PDOC ---
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 Pt has had cough for last week. Denies fever, chills, sweats, sob or exposure to illness. Pt works at [employer] and has been working long hours. As yo sleep through night with cough syrup but is bothered by cough during day. Right Anterior Chest Pain Score (Numeric/FACES): 8 - Related Data Allergies Allergy/AdvReac Type Severity Reaction Status Date / Time latex Allergy Hives Verified 04/06/20 12:17 Penicillins Allergy Hives Verified 04/06/20 12:17 Home Meds: Home Meds metFORMIN [metFORMIN XR] 1,000 mg PO BIDM 06/17/13 [History] Ascorbic Acid [C-1000 with Soco Hips] 1 tab PO DAILY 01/18/16 [History] Aspirin 1 tab PO DAILY 01/18/16 [History] Calcium Carbonate/Vitamin D3 [Calcium 500-Vit D3 200 Tablet] 1 tab PO DAILY 01/18/16 [History] Cholecalciferol (Vitamin D3) [Vitamin D3] 1 tab PO DAILY 01/18/16 [History] Chromium Amino Acid Chelate [Chromium] 200 mcg PO DAILY 01/18/16 [History] Insulin Aspart [NovoLOG] 8 - 28 unit SUBCUT ASDIRECTED 01/18/16 [History] Multivitamin/Iron/Folic Acid [Centrum Complete Multivit] 1 tab PO DAILY 01/18/16 [History] Ubidecarenone [Coenzyme Q10] 1 cap PO DAILY 01/18/16 [History] atorvaSTATin [Lipitor] 1 tab PO DAILY 01/18/16 [History] Benzonatate 200 mg PO TID 04/06/20 [History] Cyclobenzaprine [Flexeril] 10 mg PO Q8H PRN 04/06/20 [History] Insulin Degludec [Tresiba Flextouch U-200] 60 units SUBCNJ DAILY 04/06/20 [History] lisinopriL [Lisinopril] 20 mg PO DAILY 04/06/20 [History] Past Medical History HEENT History: Reports: Impaired Vision Cardiovascular History: Reports: High Cholesterol, Hypertension Respiratory History: Reports: None Genitourinary History: Reports: Diabetic Nephropathy Musculoskeletal History: Reports: Back Pain, Chronic Endocrine/Metabolic History: Reports: Diabetes, Type II Dermatologic History: Reports: Decubitus Ulcer - Past Surgical History Head Surgeries/Procedures: Reports: None HEENT Surgical History: Reports: Cataract Surgery, Tonsillectomy GI Surgical History: Reports: Colonoscopy Social & Family History - Family History Family Medical History: Noncontributory - Tobacco Use Tobacco Use Status *Q: Never Tobacco User - Caffeine Use Caffeine Use: Reports: Coffee, Soda, Tea - Recreational Drug Use Recreational Drug Use: No ED ROS GENERAL - Review of Systems Review Of Systems: See Below Constitutional: Reports: No Symptoms HEENT: Reports: No Symptoms Respiratory: Reports: Cough Cardiovascular: Reports: No Symptoms Endocrine: Reports: No Symptoms GI/Abdominal: Reports: No Symptoms : Reports: No Symptoms Musculoskeletal: Reports: Other (R sided rib pain from cough) Skin: Reports: No Symptoms Neurological: Reports: No Symptoms Psychiatric: Reports: No Symptoms Hematologic/Lymphatic: Reports: No Symptoms Immunologic: Reports: No Symptoms ED EXAM, GENERAL - Physical Exam Exam: See Below Exam Limited By: No Limitations General Appearance: Alert, WD/WN, No Apparent Distress Head: Normocephalic Neck: Normal Inspection, Full Range of Motion Respiratory/Chest: No Respiratory Distress, Lungs Clear, No Accessory Muscle Use Cardiovascular: Regular Rate, Rhythm, No Rub (Male) Exam: Deferred Rectal (Males) Exam: Deferred Neurological: Alert, Oriented, CN II-XII Intact Psychiatric: Normal Affect, Normal Mood Course - Vital Signs Last Recorded V/S: Last Vital Signs Temp 36.5 C 04/06/20 12:26 Pulse 116 H 04/06/20 12:26 Resp 20 04/06/20 12:26 BP 165/93 H 04/06/20 12:26 Pulse Ox 94 L 04/06/20 12:26 - Orders/Labs/Meds Orders: Active Orders 24 hr Category Date Time Status CORONAVIRUS COVID-19, BECKY Routine Lab 04/06/20 13:25 Ordered Labs: Laboratory Tests 04/06/20 04/06/20 Range/Units 12:59 12:59 WBC 10.2 (4.5-11.0) K/uL RBC 4.89 (4.30-5.90) M/uL Hgb 13.9 (12.0-15.0) g/dL Hct 43.1 (40.0-54.0) % MCV 88 (80-98) fL MCH 28 (27-31) pg MCHC 32 (32-36) % Plt Count 287 (150-400) K/uL Neut % (Auto) 69 H (36-66) % Lymph % (Auto) 17 L (24-44) % [place] % (Auto) 7 H (2-6) % Eos % (Auto) 7 H (2-4) % Baso % (Auto) 0 (0-1) % Sodium 137 L (140-148) mmol/L Potassium 4.9 (3.6-5.2) mmol/L Chloride 101 (100-108) mmol/L Carbon Dioxide 25 (21-32) mmol/L Anion Gap 15.9 H (5.0-14.0) mmol/L BUN 16 (7-18) mg/dL Creatinine 1.1 (0.8-1.3) mg/dL Est Cr Clr Drug Dosing 67.84 mL/min Estimated GFR (MDRD) > 60 (>60) Glucose 240 H (74-106) mg/dL Calcium 9.2 (8.5-10.1) mg/dL Total Bilirubin 0.5 D (0.2-1.0) mg/dL AST 52 H (15-37) U/L ALT 83 H (12-78) U/L Alkaline Phosphatase 88 (46-116) U/L Total Protein 7.8 (6.4-8.2) g/dL Albumin 4.0 (3.4-5.0) g/dL Globulin 3.8 H (2.3-3.5) g/dL Albumin/Globulin Ratio 1.1 L (1.2-2.2) - Re-Assessments/Exams Free Text/Narrative Re-Assessment/Exam: 04/06/20 13:29 LAbs look WNL. CXR suggestive of RLL infiltrate. Will COVID test and give ABX and note to stay home until COVID results. Departure - Departure Time of Disposition: 13:29 Disposition: Home, Self-Care 01 Condition: Good Clinical Impression: Viral syndrome - Discharge Information *PRESCRIPTION DRUG MONITORING PROGRAM REVIEWED*: Not Applicable *COPY OF PRESCRIPTION DRUG MONITORING REPORT IN PATIENT IMELDA: Not Applicable Instructions: Viral Respiratory Infection, [id number], Hand Washing, [id number] Referrals: PCP,None [Primary Care Provider] - Forms: ED Department Discharge Care Plan Goals: Your lab work looks good. Your chest xray is suggestive of right lower lobe pneumonia. We have written a prescription for antibiotics and a cough syrup. Please take them as prescribed. We have sent out a COVID test and we would like you to stay home from work until we call you with the result. If you do not improve please return to the ER or see your provider for further care. Sepsis Event Note (ED) - Evaluation Sepsis Screening Result: No Definite Risk - Focused Exam Vital Signs: Vital Signs Temp Pulse Resp BP Pulse Ox 04/06/20 12:26 36.5 C 116 H 20 165/93 H 94 L - Problem List & Annotations (1) Pneumonia SNOMED Code(s): 352613514 Code(s): J18.9 - PNEUMONIA, UNSPECIFIED ORGANISM Status: Acute Priority: High Current Visit: Yes (2) Pneumonia SNOMED Code(s): 192888338 Code(s): J18.9 - PNEUMONIA, UNSPECIFIED ORGANISM Status: Acute Priority: High Current Visit: Yes Qualifiers: Laterality: right Lung location: lower lobe of lung - My Orders Last 24 Hours: My Active Orders 04/06/20 13:25 CORONAVIRUS COVID-19, BECKY Routine - Assessment/Plan Last 24 Hours: My Active Orders 04/06/20 13:25 CORONAVIRUS COVID-19, BECKY Routine Plan: Your lab work looks good. Your chest xray is suggestive of right lower lobe pneumonia. We have written a prescription for antibiotics and a cough syrup. Please take them as prescribed. We have sent out a COVID test and we would like you to stay home from work until we call you with the result. If you do not improve please return to the ER or see your provider for further care.
--- NOTE | 2020-04-06 13:23 | CR ---
CHEST: 2 view CLINICAL HISTORY:Cough COMPARISON:None available FINDINGS: The heart size, pulmonary vascularity and hilar structures are normal. There is some patchy opacity in the right middle lobe which is suspect for pneumonia. There are some streaky density in the lingula which may be atelectasis. There is some minimal retrocardiac density which may represent some minimal left lower lobe infiltrate or atelectasis. There are atherosclerotic changes in the aorta. IMPRESSION: Patchy right lower lung density suspect for pneumonic infiltrate
== END 2020-04-06 13:43 | disposition home or self-care (01) ==
LOC: JP.ED 11:59
DX: B34.9 Viral infection, unspecified (principal); E78.00 Pure hypercholesterolemia, unspecified; I10 Essential (primary) hypertension; E11.21 Type 2 diabetes mellitus with diabetic nephropathy; Z79.4 Long term (current) use of insulin; Z91.040 Latex allergy status; Z88.0 Allergy status to penicillin; Z79.82 Long term (current) use of aspirin; Z79.899 Other long term (current) drug therapy; Z20.828 Contact with and (suspected) exposure to other viral communicable diseases
CPT/HCPCS: 36415; 71046; 71046-26; 80053; 85025; 99283-25; U0002